=== PATIENT | female | born 1995 | race Caucasian/White ===

== ENCOUNTER 2021-06-05 01:14 | Emergency (ER) | payer OTHER, SELFPAY ==
[2021-06-05 01:18] VITALS: BP 141/85; PULSE 97; RESP 17; TEMP 36.3; O2SAT 100
--- NOTE | 2021-06-05 01:38 | ED.GENADULT ---
HPI - General Adult General Chief complaint: Upper Respiratory Infection Stated complaint: Sore throat, cough, left ear pain Time Seen by Provider: 06/05/21 01:31 History of Present Illness HPI narrative: Patient is a 25-year-old female who presents the emergency department with chief complaint of left ear pain. The patient states that she is had a little bit of a runny nose little bit of a sore throat for the last several days and reports tonight she started having severe pain in the left ear. Patient reports it feels as though her eardrum is bulging patient denies any drainage from the ear. Patient reports that it feels as though her hearing is decreased in that ear. Related Data Allergies Allergy/AdvReac Type Severity Reaction Status Date / Time No Known Allergies Allergy Verified 06/05/21 01:20 Review of Systems Review of Systems: A 10 system review of systems was completed on the patient and is negative except for what is stated in the HPI. Nursing and ancillary documentation was reviewed. Exam Narrative: GENERAL: Well-appearing, well-nourished, and in no acute distress. HEAD: Normocephalic, atraumatic. EYES: PERRLA and EOMI. ENT: Nares clear, no rhinorrhea or epistaxis. Mucous membranes moist. Left tympanic membrane is bulging and erythematous NECK: Supple. CHEST: Clear to auscultation. No respiratory distress. HEART: Regular rate and rhythm. No murmur heard. Normal peripheral pulses. ABDOMEN: Soft, nontender, nondistended, normal active bowel sounds. EXTREMITIES: Normal range of motion. No edema. SKIN: Warm, dry, no rash. NEURO: No focal deficits. Alert and oriented x3. PSYCH: Normal mood and affect. Course Vital Signs Vital signs: Vital Signs Temperature 36.3 C L 06/05/21 01:18 Pulse Rate 97 06/05/21 01:18 Respiratory Rate 17 06/05/21 01:18 Blood Pressure 141/85 H 06/05/21 01:18 Pulse Oximetry 100 06/05/21 01:18 Temperature 36.3 C L 06/05/21 01:18 Pulse Rate 97 06/05/21 01:18 Respiratory Rate 17 06/05/21 01:18 Blood Pressure 141/85 H 06/05/21 01:18 Pulse Oximetry 100 06/05/21 01:18 Medical Decision Making Vital Signs Vital Signs: Vital Signs Temperature 36.3 C L 06/05/21 01:18 Pulse Rate 97 06/05/21 01:18 Respiratory Rate 17 06/05/21 01:18 Blood Pressure 141/85 H 06/05/21 01:18 Pulse Oximetry 100 06/05/21 01:18 Temperature 36.3 C L 06/05/21 01:18 Pulse Rate 97 06/05/21 01:18 Respiratory Rate 17 06/05/21 01:18 Blood Pressure 141/85 H 06/05/21 01:18 Pulse Oximetry 100 06/05/21 01:18 Discharge Plan Discharge Clinical Impression: Acute left otitis media Patient Disposition: Home, Self-Care Condition: Stable Instructions: Antibiotic Form, Ear Infection (ED) Follow-up/Referrals: PHYSICIAN NOT ON STAFF,NONSTAFF [Primary Care Provider] - Time of Disposition: 01:40
[2021-06-05] MEDS: AMOXICILLIN/CLAVULANATE K 875-125 MG TAB 1 TABLET PO (01:48)
== END 2021-06-05 01:54 | disposition home or self-care (01) ==
PROVIDERS: Emergency Provider Emergency Medicine
DX: H66.92 Otitis media, unspecified, left ear (principal)
CPT/HCPCS: 99283; A9270